=== PATIENT | male | born 1985 | race Caucasian/White ===

== ENCOUNTER 2018-02-22 21:06 | Emergency (ER) | payer OTHER ==
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
[2018-02-22] MEDS ORDERED: Ketorolac 60 MG/2 ML SDV IM ONE (21:37)
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
== END 2018-02-22 22:30 | disposition left against medical advice (07) ==
LOC: MW.ED 21:06
DX: S06.0X9A Concussion with loss of consciousness of unspecified duration, initial encounter (principal); S16.1XXA Strain of muscle, fascia and tendon at neck level, initial encounter; V49.9XXA Car occupant (driver) (passenger) injured in unspecified traffic accident, initial encounter
CPT/HCPCS: 70450; 72125; 96372; 99284; J1885